=== PATIENT | female | born 1975 | race Caucasian/White ===

== ENCOUNTER → 2017-01-20 | Outpatient (CLI) | payer OTHER ==
[2015-08-19 19:54] VITALS: BP 99/57
[~2017-01-20] MED LIST: ESTRADIOL TD; NORCO 325 MG-51 TAB PO
== END ==
LOC: LAB 18:14
DX: Z00.00 Encounter for general adult medical examination without abnormal findings (principal)

== ENCOUNTER 2017-11-06 18:38 | Emergency (ER) | payer OTHER ==
[~2017-11-06] VITALS: Wt 75.0 kg
[~2017-11-06 18:38] MED LIST changes: +ESTRACE0.5 MG PO; -ESTRADIOL TD
[2017-11-06] MEDS ORDERED: ORPHENADRINE C100 MG PO (20:02)
[2017-11-06] MEDS ORDERED: TRAMADOL 50 MG TAB PO (20:02)
[2017-11-06 20:10] VITALS: BP 110/57
== END 2017-11-06 20:10 | disposition home or self-care (01) ==
LOC: ED 18:38
DX: M54.41 Lumbago with sciatica, right side (principal); F17.200 Nicotine dependence, unspecified, uncomplicated; M62.830 Muscle spasm of back
CPT/HCPCS: J1885; J2360

== ENCOUNTER → 2018-03-16 | Outpatient (CLI) | payer BC ==
[~2018-03-16] MED LIST changes: +ORPHENADRINE C100 MG PO; +TRAMADOL 50 MG TAB PO
[2018-03-16 11:22] LABS: EOS # 0.4 (0.04-0.40); EOS % 3.9 % (1.0-5.0); HEMATOCRIT 39.9 % (37.0-47.0); HEMOGLOBIN 13.3 g/dL (12.5-16.0); LYMPH# 2.2 (1.50-4.00); MEAN CELL VOLUME 92 fl (78-100); MEAN CORPUSCULAR HEMOGLOBIN 31 pg (27-31); MEAN CORPUSCULAR HGB CONC 33 g/dL (33-37); MEAN PLATELET VOLUME 10.6 fl (7.4-10.4); NEU # 6.1 (1.40-6.50); PLATELET COUNT 339 K/mm3 (130-400); RED BLOOD COUNT 4.33 M/mm3 (4.10-5.30); RED CELL DISTRIBUTION WIDTH 13.2 % (11.5-14.5); WHITE BLOOD COUNT 9.8 K/mm3 (4.8-10.8)
== END ==
LOC: LAB 10:42
PROVIDERS: Nurse Practitioner Family
DX: R53.81 Other malaise (principal); R53.83 Other fatigue; J02.9 Acute pharyngitis, unspecified; R50.9 Fever, unspecified; R05 Cough

== ENCOUNTER 2018-12-12 16:11 | Emergency (ER) | payer BC ==
[~2018-12-12] VITALS: Ht 170.2 cm; Wt 69.1 kg
[2018-12-12] MEDS ORDERED: ESTRADIOL42.5 GM VG (17:33)
[2018-12-12] MEDS ORDERED: CYCLOBENZAPRINE10 M1 PO (18:21)
[2018-12-12] MEDS ORDERED: EC-NAPROXEN500 MG PO (18:21)
[2018-12-12 19:58] LABS: URINE APPEARANCE CLEAR; URINE COLOR YELLOW
[2018-12-12 19:59] LABS: URINE BILIRUBIN NEGATIVE (NEGATIVE); URINE BLOOD TRACE (NEGATIVE); URINE GLUCOSE NEGATIVE (NEGATIVE); URINE KETONE NEGATIVE (NEGATIVE); URINE LEUKOCYTE ESTERASE NEGATIVE (NEGATIVE); URINE NITRATE NEGATIVE (NEGATIVE); URINE PROTEIN(semi-quant) NEGATIVE (NEGATIVE); URINE UROBILINOGEN NORMAL (NORMAL); URINE WBC 0-1 /hpf (0-3)
[2018-12-12 20:20] VITALS: BP 115/54
[2018-12-13] MEDS ORDERED: EC-NAPROXEN500 MG PO (02:24)
[2018-12-13] MEDS ORDERED: CYCLOBENZAPRINE10 M1 PO (02:24)
== END 2018-12-12 20:20 | disposition home or self-care (01) ==
LOC: ED 16:11
PROVIDERS: Nurse Practitioner Family
DX: S39.012A Strain of muscle, fascia and tendon of lower back, initial encounter (principal); Z90.710 Acquired absence of both cervix and uterus; Z87.891 Personal history of nicotine dependence
CPT/HCPCS: J1100; J1885

== ENCOUNTER → 2020-01-15 | Outpatient (CLI) | payer BC ==
[~2020-01-15] MED LIST changes: +CYCLOBENZAPRINE10 M1 PO; +EC-NAPROXEN500 MG PO; +ESTRADIOL42.5 GM VG
== END ==
LOC: MAMMO 13:37
DX: Z12.31 Encounter for screening mammogram for malignant neoplasm of breast (principal); N63.20 Unspecified lump in the left breast, unspecified quadrant

== ENCOUNTER → 2020-01-17 | Outpatient (CLI) | payer BC | LOC: RAD 13:00 | DX: N63.20 Unspecified lump in the left breast, unspecified quadrant (principal); N63.32 Unspecified lump in axillary tail of the left breast ==

== ENCOUNTER → 2020-03-20 | Outpatient (CLI) | payer BC | LOC: LAB 07:50 | DX: J02.9 Acute pharyngitis, unspecified (principal); M79.10 Myalgia, unspecified site; R53.83 Other fatigue; R09.81 Nasal congestion; Z20.828 Contact with and (suspected) exposure to other viral communicable diseases ==

== ENCOUNTER 2020-03-31 13:48 | Emergency (ER) | payer BC ==
[~2020-03-31] VITALS: Ht 170.2 cm; Wt 72.7 kg
[2020-03-31 15:12] VITALS: BP 116/53
== END 2020-03-31 15:13 | disposition home or self-care (01) ==
LOC: ED 13:48
DX: S82.61XA Displaced fracture of lateral malleolus of right fibula, initial encounter for closed fracture (principal); F17.200 Nicotine dependence, unspecified, uncomplicated; Z90.710 Acquired absence of both cervix and uterus; Z88.1 Allergy status to other antibiotic agents; W10.8XXA Fall (on) (from) other stairs and steps, initial encounter; Y92.009 Unspecified place in unspecified non-institutional (private) residence as the place of occurrence of the external cause
CPT/HCPCS: 13854; L4386; L4396

== ENCOUNTER 2020-03-31 16:20 | Emergency (ER) | payer BC ==
[2020-03-31 15:12] VITALS: BP 116/53
== END 2020-03-31 16:44 | disposition home or self-care (01) ==
LOC: ED 16:20
DX: S82.61XA Displaced fracture of lateral malleolus of right fibula, initial encounter for closed fracture (principal); Z53.21 Procedure and treatment not carried out due to patient leaving prior to being seen by health care provider

== ENCOUNTER 2020-09-01 15:34 | Emergency (ER) | payer BC ==
[2020-09-01] MEDS ORDERED: CYCLOBENZAPRINE10 M1 PO (16:22)
[2020-09-01 16:31] VITALS: BP 108/50
== END 2020-09-01 16:50 | disposition home or self-care (01) ==
LOC: ED 15:34
DX: M54.32 Sciatica, left side (principal)

== ENCOUNTER → 2021-11-11 | Outpatient (CLI) | payer BC | LOC: MAMMO 15:06 | DX: Z12.31 Encounter for screening mammogram for malignant neoplasm of breast (principal) ==

== ENCOUNTER 2022-05-17 23:21 | Emergency (ER) | payer BC ==
[~2022-05-17] VITALS: Wt 72.7 kg
[2022-05-18] MEDS ORDERED: NORCO 325 MG-51 TA1 PO (00:17)
[2022-05-18] MEDS ORDERED: CYCLOBENZAPRINE10 M1 PO (00:17)
[2022-05-18 00:45] VITALS: BP 132/78
== END 2022-05-18 00:45 | disposition home or self-care (01) ==
LOC: ED 23:21
DX: M54.50 Low back pain, unspecified (principal)
CPT/HCPCS: J2360